=== PATIENT | male | born 1945 ===

== ENCOUNTER 2016-05-29 07:24 | Day surgery (SDC) | payer MEDICARE ==
[2016-05-24 07:39] VITALS: BMI 26.3
[2016-05-29 08:19] VITALS: TEMP 98
[2016-05-29] MEDS ORDERED: Lactated Ringer's 500 ML IV ONE ×2 (09:00)
[2016-05-29] MEDS ORDERED: Propofol 10 mg/ml Inj (20 ML) ONE (09:04)
[2016-05-29] MEDS ORDERED: Lidocaine Hydrochloride 5 ML INJ ONE (09:04)
[2016-05-29 11:02] VITALS: RESP 16; O2SAT 100
[2016-05-29 11:07] VITALS: BP 124/74; PULSE 86
== END 2016-05-29 10:47 | disposition home or self-care (01) ==
LOC: C.ENDO 07:24 → MERGE 10:15 → C.ENDO 10:47
PROVIDERS: ATTEND Internal Medicine Gastroenterology
DX: K21.0 Gastro-esophageal reflux disease with esophagitis (principal); Z12.11 Encounter for screening for malignant neoplasm of colon; K25.9 Gastric ulcer, unspecified as acute or chronic, without hemorrhage or perforation; K29.50 Unspecified chronic gastritis without bleeding; K44.9 Diaphragmatic hernia without obstruction or gangrene; K62.1 Rectal polyp; K57.30 Diverticulosis of large intestine without perforation or abscess without bleeding; K64.8 Other hemorrhoids
CPT/HCPCS: 43239; 45380; 45385; 82948; 88305; 88312; 88313; 88342; J2001; J2704; J7040; J7120

== ENCOUNTER 2016-09-06 07:14 | Day surgery (SDC) | payer MEDICARE ==
[2016-05-24 07:39] VITALS: BMI 26.3
--- NOTE | 2016-09-06 09:51 | CP.SDSHP ---
Same Day Surgery H & P - History Proposed Procedure: EGD Pre-Op Diagnosis: history of gastric ulcer - Previous Medical/Surgical History Cardiac: Hypertension Endocrine/Metabolic: Diabetes - Allergies Allergies: Allergies No Known Allergies Allergy (Verified 09/06/16 07:59) - Physical Exam General Appearance: NAD Vital Signs: Vital Signs 09/06/16 07:50 Temperature 97.3 F L Pulse Rate 65 Respiratory 19 Rate Blood Pressure 136/71 O2 Sat by Pulse 100 Oximetry Mental Status: Alert & Oriented x3 Neuro: WNL Heart: WNL Lungs: WNL GI: WNL - {Optional Preform as Required} Abdomen: WNL - Impression Pt. Evaluated Today:Candidate for Anesthesia & Procedure: Yes - Date & Time Date: 09/06/16 Time: 09:51 Short Stay Discharge - Short Stay Discharge Admitting Diagnosis/Reason for Visit: GASTRIC ULCER Disposition: HOME/ ROUTINE
[2016-09-06] MEDS ORDERED: Midazolam 2 MG/2 ML VIAL ONE (09:53)
[2016-09-06] MEDS ORDERED: Propofol 10 mg/ml Inj (20 ML) ONE (09:53)
[2016-09-06 11:41] VITALS: TEMP 97.5
[2016-09-06 11:43] VITALS: O2SAT 99
[2016-09-06 11:44] VITALS: BP 122/78; PULSE 93; RESP 18
== END 2016-09-06 11:15 | disposition home or self-care (01) ==
LOC: C.ENDO 07:14
PROVIDERS: ATTEND Internal Medicine Gastroenterology
DX: K29.50 Unspecified chronic gastritis without bleeding (principal); K25.9 Gastric ulcer, unspecified as acute or chronic, without hemorrhage or perforation
CPT/HCPCS: 43239; 82948; 88305; 88312; 88313; 88342; J2001; J2250; J2704